=== PATIENT | female | born 1970 | race African-American/Black ===

== ENCOUNTER 2020-12-26 11:35 | Emergency (ER) | payer OTHER ==
[~2020-12-26] VITALS: Ht 162.6 cm; Wt 167.8 kg
[2020-12-26 12:36] LABS: HEMATOCRIT 38.6 % (34.2-44.1); HEMOGLOBIN 12.1 g/dL (12.0-16.0); LYMPHOCYTES # (AUTO) 1.6 (1.0-3.2); LYMPHOCYTES % 35.8 % (18.0-39.1); MEAN CORPUSCULAR HEMOGLOBIN 26.4 pg (28-32); MEAN CORPUSCULAR HGB CONC 31.3 g/dL (31-35); MEAN CORPUSCULAR VOLUME 84.3 fL (81-99); MONOCYTES # (AUTO) 0.8 (0.2-0.8); MONOCYTES % 16.5 % (4.4-11.3); NEUTROPHILS # (AUTO) 2.1 (2.1-6.9); PLATELET COUNT 153 x10e3/uL (140-360); RED BLOOD COUNT 4.58 x10e6/uL (3.6-5.1); RED CELL DISTRIBUTION WIDTH 13.8 % (11.7-14.4)
[2020-12-26 12:48] LABS: INR 0.96; PROTHROMBIN TIME 13.3 seconds (11.9-14.5)
[2020-12-26 12:49] LABS: PARTIAL THROMBOPLASTIN TIME 25.2 seconds (23.8-35.5)
[2020-12-26 13:02] LABS: ALANINE AMINOTRANSFERASE 33 IU/L (0-55); ALBUMIN 3.4 g/dL (3.5-5.0); ALBUMIN/GLOBULIN RATIO 0.9 (0.8-2.0); ALKALINE PHOSPHATASE 79 IU/L (40-150); ANION GAP 14.3 mmol/L (8-16); BLOOD UREA NITROGEN 10 mg/dL (7-26); BUN/CREATININE RATIO 13 (6-25); CALCIUM 8.5 mg/dL (8.4-10.2); CARBON DIOXIDE 28 mmol/L (22-29); CHLORIDE 101 mmol/L (98-107); CREATININE, SERUM 0.76 mg/dL (0.57-1.11); EST GLOMERULAR FILTRATION RATE > 60 ML/MIN (60-); GLUCOSE 124 mg/dL (74-118); POTASSIUM 3.3 mmol/L (3.5-5.1); SODIUM 140 mmol/L (136-145)
[2020-12-26] MEDS ORDERED: SODIUM CHLORIDE 0.9% 50ML 50 ML ONE (13:20)
[2020-12-26] MEDS ORDERED: IOPAMIDOL 370 MG/ML 200 ML INFUS..BTL INJ ONE (13:21)
[2020-12-26 15:19] VITALS: BP 152/93
== END 2020-12-26 15:21 | disposition home or self-care (01) ==
LOC: ER 12:04
DX: R06.02 Shortness of breath (principal); R05 Cough; R53.81 Other malaise; R10.9 Unspecified abdominal pain; R51.9 Headache, unspecified; E11.65 Type 2 diabetes mellitus with hyperglycemia; M79.89 Other specified soft tissue disorders; I10 Essential (primary) hypertension
CPT/HCPCS: 36415; 71260; 80053; 83880; 84484; 85025; 85610; 85730; 93005; 93971; 99284; Q9967

== ENCOUNTER 2021-06-01 22:00 | Emergency (ER) | payer OTHER ==
[~2021-06-01] VITALS: Ht 162.6 cm; Wt 167.8 kg
[2021-06-01] MEDS ORDERED: TRAMADOL HCL 50 MG TAB PO ONE (22:30)
[2021-06-01 22:42] LABS: BASOPHILS % 0.2 % (0.0-1.0); HEMATOCRIT 40.4 % (34.2-44.1); HEMOGLOBIN 12.8 g/dL (12.0-16.0); LYMPHOCYTES # (AUTO) 2.4 (1.0-3.2); LYMPHOCYTES % 36.9 % (18.0-39.1); MEAN CORPUSCULAR HEMOGLOBIN 26.5 pg (28-32); MEAN CORPUSCULAR HGB CONC 31.7 g/dL (31-35); MEAN CORPUSCULAR VOLUME 83.6 fL (81-99); MONOCYTES # (AUTO) 0.8 (0.2-0.8); MONOCYTES % 11.6 % (4.4-11.3); NEUTROPHILS # (AUTO) 3.3 (2.1-6.9); NEUTROPHILS % 50.8 % (38.7-80.0); PLATELET COUNT 179 x10e3/uL (140-360); RED BLOOD COUNT 4.83 x10e6/uL (3.6-5.1)
[2021-06-01] MEDS ORDERED: TRAMADOL HCL 50 MG TAB ONE (22:44)
[2021-06-01 22:58] LABS: ALBUMIN 3.5 g/dL (3.5-5.0); ALBUMIN/GLOBULIN RATIO 0.9 (0.8-2.0); ANION GAP 17.5 mmol/L (8-16); CALCIUM 8.7 mg/dL (8.4-10.2); CREATININE, SERUM 0.83 mg/dL (0.57-1.11); POTASSIUM 3.5 mmol/L (3.5-5.1)
[2021-06-01 23:05] LABS: CREATINE KINASE MB 0.7 ng/mL (0-5.0)
[2021-06-02] MEDS ORDERED: DIPHENHYDRAMINE HCL INJ 50 MG/ML VIAL IV ONE (01:00)
[2021-06-02 01:05] VITALS: BP 154/118
[2021-06-02] MEDS ORDERED: DIPHENHYDRAMINE HCL INJ 50 MG/ML VIAL ONE (01:05)
== END 2021-06-02 01:03 | disposition home or self-care (01) ==
LOC: ER 22:50
DX: R07.89 Other chest pain (principal); G44.209 Tension-type headache, unspecified, not intractable; E11.65 Type 2 diabetes mellitus with hyperglycemia; I10 Essential (primary) hypertension; R94.31 Abnormal electrocardiogram [ECG] [EKG]
CPT/HCPCS: 36415; 70450; 71045; 80053; 82550; 82553; 84484; 85025; 93005; 99284; J1200

== ENCOUNTER 2021-12-10 11:29 | Emergency (ER) | payer OTHER ==
[~2021-12-10] VITALS: Ht 162.6 cm; Wt 167.8 kg
[2021-12-10 13:50] VITALS: BP 128/76
== END 2021-12-10 13:51 | disposition home or self-care (01) ==
LOC: ER 11:50
DX: K02.9 Dental caries, unspecified (principal); E66.01 Morbid (severe) obesity due to excess calories
CPT/HCPCS: 70486; 70490; 99283

== ENCOUNTER 2022-03-19 11:47 | Observation (INO) | payer OTHER ==
[~2022-03-19] VITALS: Ht 162.6 cm; Wt 155.1 kg
[2022-03-19] MEDS ORDERED: SODIUM CHLORIDE 0.9% 1000ML 1,000 ML IV SCH ×2 (12:30→14:00)
[2022-03-19 12:35] LABS: BASOPHILS % 0.2 % (0.0-1.0); HEMATOCRIT 40.3 % (34.2-44.1); HEMOGLOBIN 12.8 g/dL (12.0-16.0); LYMPHOCYTES % 40.2 % (18.0-39.1); MEAN CORPUSCULAR HEMOGLOBIN 26.9 pg (28-32); MEAN CORPUSCULAR HGB CONC 31.8 g/dL (31-35); MEAN CORPUSCULAR VOLUME 84.7 fL (81-99); MONOCYTES # (AUTO) 0.6 (0.2-0.8); MONOCYTES % 12.5 % (4.4-11.3); NEUTROPHILS # (AUTO) 2.3 (2.1-6.9); NEUTROPHILS % 46.9 % (38.7-80.0); PLATELET COUNT 225 x10e3/uL (140-360); RED BLOOD COUNT 4.76 x10e6/uL (3.6-5.1); RED CELL DISTRIBUTION WIDTH 14.3 % (11.7-14.4)
[2022-03-19 12:58] LABS: LIPASE 73 U/L (8-78)
[2022-03-19 13:01] LABS: ALBUMIN 3.3 g/dL (3.5-5.0); ALBUMIN/GLOBULIN RATIO 0.7 (0.8-2.0); ANION GAP 15.7 mmol/L (8-16); CALCIUM 8.9 mg/dL (8.4-10.2); CREATININE, SERUM 0.78 mg/dL (0.57-1.11)
[2022-03-19 13:04] LABS: POTASSIUM 2.7 mmol/L (3.5-5.1)
[2022-03-19] MEDS ORDERED: POTASSIUM CHLORIDE 20 MEQ TAB CR PO STA (13:30)
[2022-03-19 13:33] LABS: COLOR,URINE YELLOW (YELLOW)
[2022-03-19 13:34] LABS: CLARITY,URINE CLEAR (CLEAR); KETONES,URINE NEGATIVE (NEGATIVE); LEUKOCYTE ESTERASE ,URINE NEGATIVE (NEGATIVE); NITRITE,URINE NEGATIVE (NEGATIVE); PROTEIN,URINE DIPSTICK NEGATIVE (NEGATIVE); URINE UROBILINOGEN 0.2 mg/dL (0.2 - 1)
[2022-03-19] MEDS ORDERED: ONDANSETRON HCL INJ 2MG/ML 2ML 2 MG/ML VIAL IV PRN ×2 (14:00→15:00)
[2022-03-19] MEDS ORDERED: POTASSIUM CHLORIDE 20MEQ/100ML 200 ML IV ONE ×2 (14:00→18:00)
[2022-03-19 14:04] LABS: WBC,URINE (MAN) 0-5 /HPF (0-5)
[2022-03-19 14:05] LABS: BACTERIA,URINE MANY /HPF; EPITHELIAL CELLS,URINE MANY /LPF; RBC,URINE 0-5 /HPF (0-5)
[2022-03-19] MEDS ORDERED: ALBUTEROL/IPRATROPIUM 3 ML NEB NEB PRN (15:00)
[2022-03-19] MEDS ORDERED: BENZONATATE 100 MG CAP PO PRN (15:00)
[2022-03-19] MEDS: D5NS/KCL 20MEQ 1,000 ML IV SCH (15:00)
[2022-03-19] MEDS ORDERED: LIDOCAINE 4% PATCH TP PRN (15:00)
[2022-03-19] MEDS ORDERED: POTASSIUM CHLORIDE 20 MEQ TAB CR PO PRN (15:00)
[2022-03-19] MEDS ORDERED: DOCUSATE SODIUM 100 MG CAP PO PRN (15:00)
[2022-03-19] MEDS ORDERED: MELATONIN 5 MG TABLET PO PRN (15:00)
[2022-03-19] MEDS ORDERED: DEXTROSE 50% SYRINGE 50 ML IV PRN (15:00)
[2022-03-19] MEDS ORDERED: ACETAMINOPHEN 325 MG TAB PO PRN ×2 (15:00→18:30)
[2022-03-19] MEDS ORDERED: HYDRALAZINE HCL 20 MG/ML VIAL IV PRN (15:00)
[2022-03-19] MEDS ORDERED: DIPHENHYDRAMINE HCL 25 MG CAP PO PRN (15:00)
[2022-03-19] MEDS ORDERED: SIMETHICONE 80 MG CHEW PO PRN (15:00)
[2022-03-19] MEDS ORDERED: POTASSIUM CHLORIDE 20MEQ/15ML UDC NG ONE (16:00)
[2022-03-19] MEDS ORDERED: KCL 20 MEQ PACKET/ ORAL SOLN PO ONE (16:30)
[2022-03-19 17:00] VITALS: BP 142/95
[2022-03-19 17:11] VITALS: BP 142/95
[2022-03-19 19:21] LABS: CREATINE KINASE 68 IU/L (29-168)
[2022-03-19] MEDS ORDERED: CLONIDINE HCL0.3 MG PO (19:35)
[2022-03-19] MEDS ORDERED: FAMOTIDINE20 MG PO (19:35)
[2022-03-19] MEDS ORDERED: METOPROLOL SUCC50 MG PO (19:35)
[2022-03-19] MEDS ORDERED: MONTELUKAST SOD10 MG PO (19:35)
[2022-03-19] MEDS ORDERED: PROAIR HFA INH8.5 GM INH (19:35)
[2022-03-19] MEDS ORDERED: METFORMIN HCL500 MG PO (19:35)
[2022-03-19] MEDS ORDERED: POTASSIUM CHLO20 ME1 PO (19:35)
[2022-03-19] MEDS ORDERED: ALPRAZOLAM1 MG PO (19:35)
[2022-03-19] MEDS ORDERED: LOSARTAN POTAS100 MG PO (19:41)
[2022-03-19] MEDS ORDERED: BUDESONIDE0.5 MG/2 M NEB (19:41)
[2022-03-19] MEDS ORDERED: TRULICITY3 MG/0.5 M SC (19:41)
[2022-03-19] MEDS ORDERED: HYDROCODON-ACE1 EA11 PO (19:41)
[2022-03-19 20:00] VITALS: BP 135/94
[2022-03-19] MEDS: HYDROCODONE/APAP 5MG-325MG TAB PO PRN (20:35)
[2022-03-19 21:00] VITALS: BP 135/94
[2022-03-19] MEDS ORDERED: FAMOTIDINE 20 MG TAB PO SCH (21:00)
[2022-03-19 23:48] LABS: CREATINE KINASE 58 IU/L (29-168)
[2022-03-20] VITALS (8 sets, daily range): BP systolic 131–164; BP diastolic 81–107
[2022-03-20] MEDS: D5NS/KCL 20MEQ 1,000 ML IV SCH ×2 (02:02→11:09)
[2022-03-20 05:00] LABS: HEMATOCRIT 35.9 % (34.2-44.1); HEMOGLOBIN 11.3 g/dL (12.0-16.0); LYMPHOCYTES # (AUTO) 1.9 (1.0-3.2); MEAN CORPUSCULAR HEMOGLOBIN 26.7 pg (28-32); MEAN CORPUSCULAR HGB CONC 31.5 g/dL (31-35); MEAN CORPUSCULAR VOLUME 84.9 fL (81-99); MONOCYTES # (AUTO) 0.7 (0.2-0.8); MONOCYTES % 14.2 % (4.4-11.3); NEUTROPHILS # (AUTO) 2.2 (2.1-6.9); NEUTROPHILS % 45.6 % (38.7-80.0); PLATELET COUNT 187 x10e3/uL (140-360); RED BLOOD COUNT 4.23 x10e6/uL (3.6-5.1); RED CELL DISTRIBUTION WIDTH 14.5 % (11.7-14.4)
[2022-03-20 05:25] LABS: ALBUMIN 2.8 g/dL (3.5-5.0); ALBUMIN/GLOBULIN RATIO 0.7 (0.8-2.0); ANION GAP 13.3 mmol/L (8-16); CALCIUM 8.2 mg/dL (8.4-10.2); CREATININE, SERUM 0.73 mg/dL (0.57-1.11); POTASSIUM 3.3 mmol/L (3.5-5.1)
[2022-03-20 05:36] LABS: MAGNESIUM 1.6 MG/DL (1.3-2.1)
[2022-03-20 06:03] LABS: CREATINE KINASE 53 IU/L (29-168)
[2022-03-20] MEDS: PANTOPRAZOLE SOD 40 MG TABEC PO SCH (07:42)
[2022-03-20 08:17] LABS: ANISOCYTOSIS MODERATE; HYPOCHROMASIA MODERATE; OVALOCYTES FEW; PLATELET ESTIMATE SLIGHTLY DECREASED; PLATELET MORPHOLOGY COMMENT NORMAL; RBC MORPHOLOGY COMMENT ABNORMAL
[2022-03-20] MEDS: LOSARTAN POTASSIUM 100 MG TAB PO SCH (12:18)
[2022-03-20] MEDS ORDERED: METOPROLOL SUCCINATE 50 MG TAB XL PO SCH (12:30)
[2022-03-20] MEDS: METOPROLOL TARTRATE 50 MG TAB PO SCH ×2 (13:30→17:55)
[2022-03-20] MEDS: ALPRAZOLAM 1 MG TAB PO SCH (17:55)
[2022-03-20] MEDS ORDERED: MONTELUKAST SODIUM 10 MG TAB PO SCH (21:00)
[2022-03-20] MEDS ORDERED: FAMOTIDINE 20 MG TAB PO SCH (21:00)
[2022-03-20] MEDS: HYDROCODONE/APAP 5MG-325MG TAB PO PRN (21:29)
[2022-03-21] VITALS: BP 163/93
[2022-03-21 04:00] VITALS: BP 161/88
[2022-03-21 07:30] VITALS: BP 149/89
[2022-03-21 07:57] VITALS: BP 149/89
[2022-03-21] MEDS: METOPROLOL TARTRATE 50 MG TAB PO SCH (08:45)
[2022-03-21] MEDS: PANTOPRAZOLE SOD 40 MG TABEC PO SCH (08:45)
[2022-03-21] MEDS: ALPRAZOLAM 1 MG TAB PO SCH (08:45)
[2022-03-21] MEDS: LOSARTAN POTASSIUM 100 MG TAB PO SCH (08:45)
[2022-03-21] MEDS ORDERED: ONDANSETRON HCL 4 MG ORAL DISINTEGRATING TAB PO PRN (11:00)
[2022-03-21 11:23] VITALS: BP 154/95
[2022-03-21 12:28] VITALS: BP 154/95
== END 2022-03-21 14:06 | disposition home or self-care (01) ==
LOC: ER 12:03 → ERHOLD 13:53 → INTOOBSV 13:53 → MED/SURG 16:43
PROVIDERS: ADMIT Internal Medicine; ATTEND Internal Medicine
DX: E87.6 Hypokalemia (principal); I10 Essential (primary) hypertension; E11.9 Type 2 diabetes mellitus without complications; E87.8 Other disorders of electrolyte and fluid balance, not elsewhere classified; Z88.8 Allergy status to other drugs, medicaments and biological substances; Z91.041 Radiographic dye allergy status; Z91.010 Allergy to peanuts; Z98.84 Bariatric surgery status; R19.7 Diarrhea, unspecified; Z20.822 Contact with and (suspected) exposure to COVID-19
CPT/HCPCS: 36415 ×3; 70450; 74176; 80053 ×2; 81001; 82550 ×2; 82553 ×2; 83036; 83690; 83735 ×2; 84100; 84132 ×2; 84484 ×2; 85025 ×2; 93005; 99284; G0378 ×3; J3480; S0164 ×2; U0002

== ENCOUNTER 2022-12-11 10:36 | Emergency (ER) | payer OTHER ==
[~2022-12-11] VITALS: Ht 162.6 cm; Wt 155.1 kg
[~2022-12-11 10:36] MED LIST: ALPRAZOLAM1 MG PO; BUDESONIDE0.5 MG/2 M NEB; CLONIDINE HCL0.3 MG PO; FAMOTIDINE20 MG PO; HYDROCODON-ACE1 EA11 PO; LOSARTAN POTAS100 MG PO; METFORMIN HCL500 MG PO; METOPROLOL SUCC50 MG PO; MONTELUKAST SOD10 MG PO; POTASSIUM CHLO20 ME1 PO; PROAIR HFA INH8.5 GM INH; TRULICITY3 MG/0.5 M SC
[2022-12-11] MEDS ORDERED: KETOROLAC TROMETHAMINE 30 MG/ML VIAL IV STA (11:04)
[2022-12-11] MEDS ORDERED: SODIUM CHLORIDE 0.9% 1000ML 1,000 ML IV STA (11:04)
[2022-12-11] MEDS ORDERED: ACETAMINOPHEN 325 MG TAB PO ONE (11:15)
[2022-12-11 11:17] LABS: BASOPHILS % 0.2 % (0.0-1.0); HEMATOCRIT 40.3 % (34.2-44.1); HEMOGLOBIN 12.1 g/dL (12.0-16.0); LYMPHOCYTES # (AUTO) 2.1 (1.0-3.2); LYMPHOCYTES % 39.2 % (18.0-39.1); MEAN CORPUSCULAR HEMOGLOBIN 26.2 pg (28-32); MEAN CORPUSCULAR VOLUME 87.4 fL (81-99); MONOCYTES # (AUTO) 0.5 (0.2-0.8); MONOCYTES % 9.2 % (4.4-11.3); NEUTROPHILS # (AUTO) 2.7 (2.1-6.9); NEUTROPHILS % 50.8 % (38.7-80.0); PLATELET COUNT 188 x10e3/uL (140-360); RED BLOOD COUNT 4.61 x10e6/uL (3.6-5.1); RED CELL DISTRIBUTION WIDTH 14.1 % (11.7-14.4)
[2022-12-11 11:29] LABS: ALANINE AMINOTRANSFERASE 20 IU/L (0-55); ALBUMIN 3.1 g/dL (3.5-5.0); ALBUMIN/GLOBULIN RATIO 0.8 (0.8-2.0); ALKALINE PHOSPHATASE 90 IU/L (40-150); ANION GAP 13.2 mmol/L (8-16); BLOOD UREA NITROGEN 10 mg/dL (7-26); BUN/CREATININE RATIO 13 (6-25); CALCIUM 8.6 mg/dL (8.4-10.2); CARBON DIOXIDE 29 mmol/L (22-29); CHLORIDE 99 mmol/L (98-107); CREATINE KINASE 45 IU/L (29-168); CREATININE, SERUM 0.76 mg/dL (0.57-1.11); GLUCOSE 102 mg/dL (74-118); LIPASE 46 U/L (8-78); POTASSIUM 3.2 mmol/L (3.5-5.1); SODIUM 138 mmol/L (136-145)
[2022-12-11 11:54] LABS: CLARITY,URINE CLEAR (CLEAR); COLOR,URINE YELLOW (YELLOW); KETONES,URINE NEGATIVE (NEGATIVE); LEUKOCYTE ESTERASE ,URINE TRACE (NEGATIVE); NITRITE,URINE NEGATIVE (NEGATIVE); PROTEIN,URINE DIPSTICK NEGATIVE (NEGATIVE); URINE UROBILINOGEN 0.2 mg/dL (0.2 - 1)
[2022-12-11 12:08] LABS: BACTERIA,URINE MANY /HPF; EPITHELIAL CELLS,URINE MANY /LPF; RBC,URINE 0-5 /HPF (0-5)
[2022-12-11] MEDS ORDERED: OMEPRAZOLE40 MG PO (13:41)
[2022-12-11 13:56] VITALS: BP 121/77
[2022-12-11] MEDS ORDERED: DONNATAL/LIDOCAINE/MAALOX 30 ML SUSP PO SCH (15:00)
== END 2022-12-11 13:58 | disposition home or self-care (01) ==
LOC: ER 10:54
DX: R07.89 Other chest pain (principal); K21.00 Gastro-esophageal reflux disease with esophagitis, without bleeding; R19.7 Diarrhea, unspecified; R51.9 Headache, unspecified
CPT/HCPCS: 36415; 71046; 80053; 81001; 82550; 82553; 83690; 83880; 84484; 85025; 93005; 99284; C9113; J1885; J7030